=== PATIENT | male | born 1980 | race Caucasian/White ===

== ENCOUNTER 2017-02-25 21:11 | Emergency (ER) | payer BC ==
[~2017-02-25] VITALS: Ht 177.8 cm; Wt 74.8 kg
[~2017-02-25 21:11] MED LIST: NORCO 5-325 TA1 EACH PO; SUDAFED 24-HOU240 MG PO
[2017-02-25] MEDS ORDERED: NORCO 5-325 TA1 EACH PO (23:45)
[2017-02-25] MEDS ORDERED: CRUTCH1 EACH MISC (23:46)
== END 2017-02-26 00:07 | disposition home or self-care (01) ==
LOC: ED 21:11
DX: S93.402A Sprain of unspecified ligament of left ankle, initial encounter (principal); X50.1XXA Overexertion from prolonged static or awkward postures, initial encounter; Y93.64 Activity, baseball
CPT/HCPCS: 73610; 99283

== ENCOUNTER 2019-08-05 19:30 | Emergency (ER) | payer BC ==
[~2019-08-05] VITALS: Ht 177.8 cm; Wt 74.8 kg
[~2019-08-05 19:30] MED LIST changes: +CRUTCH1 EACH MISC
[2019-08-05] MEDS ORDERED: TAMIFLU75 MG PO (20:39)
--- NOTE | 2019-08-06 15:52 | EKG ---
[facility] [address] [place], [place] [address] Signed Normal sinus rhythm Normal ECG No previous ECGs available Confirmed by BONITA PERRY DO ([id number]) on 08/06/2019 3:51:57 PM Electronically Signed By: BONITA PERRY DO 08/06/19 1552 PATIENT NAME: RUDIANALI OZUNA Electrocardiogram DATE OF : 82 PHYSICIAN: BONITA PERRY DO REPORT #: [id number] REPORT IS CONFIDENTIAL AND NOT TO BE RELEASED WITHOUT AUTHORIZATION
== END 2019-08-05 20:55 | disposition home or self-care (01) ==
LOC: ED 19:30
DX: J10.1 Influenza due to other identified influenza virus with other respiratory manifestations (principal)
CPT/HCPCS: 70450; 80053; 85025; 87502; 93005; 93010; 99284-25; G0480